=== PATIENT | female | born 1985 | race African-American/Black ===

== ENCOUNTER 2020-06-03 12:46 | Emergency (ER) | payer OTHER, SELFPAY ==
[2020-06-03 12:56] VITALS: BP 127/88; PULSE 80; RESP 16; TEMP 37; O2SAT 100
--- NOTE | 2020-06-03 13:16 | ED.SKABFB ---
HPI - Skin/Abscess/Foreign Bdy General Chief complaint: Skin/Abscess/Foreign Body Stated complaint: Rash Source: patient Mode of arrival: ambulatory Limitations: no limitations History of Present Illness HPI narrative: Patient is a 34-year-old female who presents complaining of eczema flare. She reports a history of eczema, as she has multiple medications in the past. She reports she does not currently have a PCP. She is complaining of pruritus. She reports using multiple [id number] lotions and creams without relief. She denies pain. Related Data Allergies Allergy/AdvReac Type Severity Reaction Status Date / Time peanut Allergy Mild Verified 06/03/20 13:02 Review of Systems Review of Systems: Narrative: CONSTITUTIONAL: Denies fever, chills, or sweats. EYES: Denies visual changes, redness, or discharge. ENT: Denies rhinorrhea, congestion, sore throat, or otalgia. CARDIOVASCULAR: Denies chest pain, palpitations, or edema. RESPIRATORY: Denies cough or dyspnea. GASTROINTESTINAL: Denies abdominal pain, nausea, vomiting, or diarrhea. GENITOURINARY: Denies dysuria or hematuria. SKIN: Reports eczema to neck chest bilateral arms and face MUSCULOSKELETAL: Denies back pain, joint pain, or myalgia. NEUROLOGIC: Denies headache, numbness, dizziness, or weakness. PSYCHIATRIC: Denies anxiety or depression. [facility]LY [facility] Past Medical History Medical History Asthma Eczema Surgical History Surgical History (Updated 06/03/20 @ 13:20 by MARIAN De La Garza) No significant past surgical history Social History Social History (Updated 06/03/20 @ 13:21 by MARIAN De La Garza) Smoking status: Never smoker Alcohol intake: current Alcohol use details: occasional Substance use: never Gender identity (if verbalized by the patient): Female Exam Narrative: Exam Narrative: GENERAL: Well-appearing, well-nourished, and in no acute distress. HEAD: Normocephalic, atraumatic. EYES: No redness or drainage. ENT: Mucous membranes pink and moist. CHEST: No respiratory distress. EXTREMITIES: Normal range of motion. SKIN: Multiple areas of erythema and excoriation to neck, bilateral arms and torso. NEURO: No focal deficits. Alert and oriented x3. Gait steady. PSYCH: Normal affect. No signs of depression or anxiety. Course Vital Signs Vital signs: Vital Signs Temperature 37.0 C 06/03/20 12:56 Pulse Rate 80 06/03/20 12:56 Respiratory Rate 16 06/03/20 12:56 Blood Pressure 127/88 06/03/20 12:56 Pulse Oximetry 100 06/03/20 12:56 Temperature 37.0 C 06/03/20 12:56 Pulse Rate 80 06/03/20 12:56 Respiratory Rate 16 06/03/20 12:56 Blood Pressure 127/88 06/03/20 12:56 Pulse Oximetry 100 06/03/20 12:56 Reviewed MDM - Skin/Abscess/Foreign Bdy MDM Narrative Medical decision making narrative: Patient has multiple areas of eczema. Cream to be ordered. Patient also to be given Atarax for itching. Discussed following up with dermatology. Patient reports she does not have a PCP at this time, 1 to be provided. Patient is stable for discharge to home. Differential Diagnosis Differential diagnosis: Likely urticaria, eczema and contact dermatitis Critical Care Time Critical Care Time Critical Care Time: No Discharge Plan Discharge Clinical Impression: Eczema Patient Disposition: Home, Self-Care Condition: Stable Instructions: Eczema (ED) Additional Instructions: Use cream as directed. You may take Atarax for itching. Continue to keep your skin well moisturized. Follow-up with PCP provided. Prescriptions: New clobetasol 0.05 % cream 1 applic topical BID PRN (Reason: dermatitis) 14 Days Qty: 60 RF: 0 hydroxyzine HCl 25 mg tablet 25 mg PO TID PRN (Reason: itching) Qty: 20 RF: 0 Follow-up/Referrals: PHYSICIAN,MOLD BLOWER [Primary Care Provider] - Time of Disposition: 13:29
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
== END 2020-06-03 13:31 | disposition home or self-care (01) ==
PROVIDERS: Emergency Provider Nurse Practitioner
DX: L30.9 Dermatitis, unspecified (principal); J45.909 Unspecified asthma, uncomplicated
CPT/HCPCS: 99213; G0463

== ENCOUNTER 2020-09-16 14:41 | Emergency (ER) | payer OTHER, SELFPAY ==
--- NOTE | 2020-09-16 14:59 | ED.SKABFB ---
HPI - Skin/Abscess/Foreign Bdy General Chief complaint: Skin/Abscess/Foreign Body Stated complaint: RASH Time Seen by Provider: 09/16/20 14:58 Source: patient and RN notes reviewed Mode of arrival: ambulatory Limitations: no limitations History of Present Illness HPI narrative: 34 a female presents with concern for eczema flare. Reports history of eczema. Reports for 3 days she has had flared up patches of eczema on her arms, legs, torso. Reports she is out of her clobetasol. She denies any difficulty breathing, wheezing, nausea, vomiting, fever, swollen lips, swollen tongue. complaint: rash Related Data Allergies Allergy/AdvReac Type Severity Reaction Status Date / Time peanut Allergy Mild Verified 06/03/20 13:02 Review of Systems Review of Systems: Narrative: CONSTITUTIONAL: Denies malaise, chills, sweats, or fever. EYES: Denies visual changes, redness, or discharge. ENT: Denies swollen lips, swollen tongue, difficulty swallowing CARDIOVASCULAR: Denies chest pain, palpitations, or edema. RESPIRATORY: Denies cough or dyspnea. GASTROINTESTINAL: Denies nausea, vomiting, diarrhea SKIN: Reports itchy patches on arms, legs, torso All systems reviewed & are unremarkable except as noted in HPI and below PMFSH Past Medical History Medical History Asthma Eczema Surgical History Surgical History (Updated 06/03/20 @ 13:20 by MARIAN De La Garza) No significant past surgical history Social History Social History (Updated 06/03/20 @ 13:21 by MARIAN De La Garza) Smoking status: Never smoker Alcohol intake: current Substance use: never Gender identity (if verbalized by the patient): Female Comments At time of signature, agree with nursing past medical, surgical, social and family history. There is no relevant family history pertinent to the presenting complaint Exam Narrative: Exam Narrative: GENERAL: Well-appearing, well-nourished, and in no acute distress. HEAD: Normocephalic, atraumatic. EYES: PERRLA, conjunctivae clear, and EOMI. ENT: Mucous membranes moist. Oropharynx without edema, erythema or lesions. NECK: Supple. No lymphadenopathy CHEST: Clear to auscultation. No respiratory distress. HEART: Regular rate and rhythm. SKIN: Warm, dry. Patches of scaly dryness and erythema noted to arms and legs NEURO: Alert and oriented x3. PSYCH: Normal mood and affect Course Course Emergency Course: Patient is aware of diagnosis, understands and agrees to treatment plan. Anticipatory guidance given. Patient agrees to follow-up as directed and is aware of reasons to seek care at the emergency department. Portions of this record may have been created with voice recognition software Vital Signs Vital signs: Vital Signs Temperature 96.7 F L 09/16/20 15:01 Pulse Rate 71 09/16/20 15:01 Respiratory Rate 18 09/16/20 15:01 Blood Pressure 124/76 09/16/20 15:01 Pulse Oximetry 100 09/16/20 15:01 Temperature 96.7 F L 09/16/20 15:01 Pulse Rate 71 09/16/20 15:01 Respiratory Rate 18 09/16/20 15:01 Blood Pressure 124/76 09/16/20 15:01 Pulse Oximetry 100 09/16/20 15:01 Reviewed. MDM - Skin/Abscess/Foreign Bdy MDM Narrative Medical decision making narrative: Does not appear at this time to be erythema multiforme, bullous, SJS, TEN; no evidence at this time to suggest RMSF, endocarditis or Lyme disease; patient looks well, nontoxic and is tolerating oral intake; no neurologic signs or symptoms; no headache, photophobia or neck pain; afebrile; appropriate for initial outpatient treatment; discussed the importance of follow-up, patient agrees; question, viral exanthema, contact dermatitis, allergic dermatitis, eczema, urticaria. No soft palate or uvula edema, no tongue, lip edema or other mucosal involvement, no respiratory compromise, no stridor, no wheezing, no wheezing, no history of syncope, no hypotension, no nausea, vomiting, o
[2020-09-16 15:01] VITALS: BP 124/76; PULSE 71; RESP 18; TEMP 35.9; O2SAT 100
== END 2020-09-16 15:09 | disposition home or self-care (01) ==
PROVIDERS: Emergency Provider Nurse Practitioner
DX: L30.9 Dermatitis, unspecified (principal); J45.909 Unspecified asthma, uncomplicated
CPT/HCPCS: 99213; G0463

== ENCOUNTER 2021-01-03 18:38 | Emergency (ER) | payer OTHER, SELFPAY ==
[2021-01-03 18:49] VITALS: BP 122/87; PULSE 75; RESP 16; TEMP 36.1; O2SAT 100
[2021-01-03 18:52] VITALS: BP 122/87; PULSE 75; RESP 16; TEMP 36.1; O2SAT 100
--- NOTE | 2021-01-03 18:56 | ED.SKABFB ---
HPI - Skin/Abscess/Foreign Bdy General Chief complaint: Skin/Abscess/Foreign Body Stated complaint: Rash History of Present Illness HPI narrative: This is a 35-year-old female comes in complaining of flareup of her eczema patient states that she takes clobetasol she states she used triamcinolone whenever she had flares but it no longer works for her patient states she is been working out and has been hot out and she thinks that was causing her flare Related Data Allergies Allergy/AdvReac Type Severity Reaction Status Date / Time peanut Allergy Mild Verified 06/03/20 13:02 Review of Systems Constitutional: Comments: CONSTITUTIONAL: Denies fever, chills, or sweats. EYES: Denies visual changes, redness, or discharge. ENT: Denies rhinorrhea, congestion, sore throat, or otalgia. CARDIOVASCULAR:Denies chest pain, palpitations, or edema. RESPIRATORY: Denies cough or dyspnea. GASTROINTESTINAL: Denies abdominal pain, nausea, vomiting, or diarrhea. GENITOURINARY: Denies dysuria or hematuria. SKIN: Positive rash or itching. MUSCULOSKELETAL:Denies back pain, joint pain, or myalgia. NEUROLOGIC: Denies headache, numbness, or weakness. PSYCHIATRIC:Denies anxiety or depression PMFSH Past Medical History Medical History Asthma Eczema Surgical History Surgical History (Updated 06/03/20 @ 13:20 by MARIAN De La Garza) No significant past surgical history Social History Social History (Updated 06/03/20 @ 13:21 by MARIAN De La Garza) Smoking status: Never smoker Alcohol intake: current Substance use: never Gender identity (if verbalized by the patient): Female Comments At time as signature, I have reviewed and agree with nursing past medical, social, surgical and family history. Please see nursing chart for further information. There is no relevant family history pertinent to the presenting complaint. Exam Narrative: Exam Narrative: GENERAL:Well-appearing, well-nourished, and in no acute distress. HEAD:Normocephalic, atraumatic. EYES: PERRLA and EOMI. ENT: Nares clear, no rhinorrhea or epistaxis. Mucous membranes moist. NECK: Supple. CHEST: Clear to auscultation. No respiratory distress. HEART: Regular rate and rhythm. No murmur heard. Normal peripheral pulses. ABDOMEN: Soft, nontender, nondistended, normal active bowel sounds. EXTREMITIES: Normal range of motion. No edema. SKIN: Warm, dry, fine hard rash, itchy all over bilateral arms chest, and some back. NEURO: No focal deficits. Alert and oriented x3. Course Vital Signs Vital signs: Vital Signs Temperature 96.9 F L 01/03/21 18:49 Pulse Rate 75 01/03/21 18:49 Respiratory Rate 16 01/03/21 18:49 Blood Pressure 122/87 01/03/21 18:49 Pulse Oximetry 100 01/03/21 18:49 Temperature 96.9 F L 01/03/21 18:52 Pulse Rate 75 01/03/21 18:52 Respiratory Rate 16 01/03/21 18:52 Blood Pressure 122/87 01/03/21 18:52 Pulse Oximetry 100 01/03/21 18:52 MDM - Skin/Abscess/Foreign Bdy Differential Diagnosis Differential diagnosis: Likely abscess of skin or subcutaneous tissue, viral exanthem, urticaria, eczema, insect bites and contact dermatitis Discharge Plan Discharge Clinical Impression: Eczema Qualifiers: Eczema type: unspecified Qualified Code(s): L30.9 - Dermatitis, unspecified Patient Disposition: Home, Self-Care Condition: Stable Instructions: Antibiotic Form, Eczema (ED) Additional Instructions: Use skin creams/lotion, such as those containing calamine or pramoxine to reduce itchiness Avoid scratching when possible to prevent worsening of the condition and disruption of the skin that could lead to bacterial infection To relieve itching, place a cool washcloth or some ice over the area that itches, rather than scratching Return to the office or seek ER visit if condition is not improving or worsens with fever, swelling, difficulty breathing or swallowing.
== END 2021-01-03 19:02 | disposition home or self-care (01) ==
PROVIDERS: Emergency Provider Nurse Practitioner Family
DX: L30.9 Dermatitis, unspecified (principal); J45.909 Unspecified asthma, uncomplicated
CPT/HCPCS: 99213; G0463

== ENCOUNTER 2021-01-16 14:01 | Emergency (ER) | payer OTHER, SELFPAY ==
--- NOTE | 2021-01-16 14:08 | ED.DENTAL ---
HPI - Dental/Oral General Chief complaint: Dental/Oral Stated complaint: Tooth Pain Time Seen by Provider: 01/16/21 14:08 Source: patient and RN notes reviewed Mode of arrival: ambulatory Limitations: no limitations History of Present Illness HPI Narrative: 35-year-old female presents to the [facility] with complaints pain and swelling to the right lower jaw. Unknown last Dental visit. States that she has made a dental apt in Mar. Decayed teeth noted throughout the mouth. Denies fever, nausea, vomiting. No chest pain or abdominal pain. History of eczema Related Data Allergies Allergy/AdvReac Type Severity Reaction Status Date / Time peanut Allergy Mild Other Verified 01/16/21 14:16 Review of Systems Review of Systems: All systems reviewed & are unremarkable except as noted in HPI and below Constitutional: Constitutional: Reports no additional constitutional complaints, Denies chills and Denies fever(s) Eyes: Eyes: Reports no additional eye complaints ENT: Reports as per HPI and Denies sore throat Comments: Right lower dental pain and swelling Cardiovascular: Cardiovascular: Reports no additional cardiovascular complaints and Denies chest pain Respiratory: Respiratory: Reports no additional respiratory complaints, Denies cough and Denies dyspnea Gastrointestinal: Gastrointestinal: Reports no additional gastrointestinal complaints, Denies abdominal pain, Denies nausea and Denies vomiting Musculoskeletal: Musculoskeletal: Reports no additional musculoskeletal complaints, Denies back pain, Denies arthralgias and Denies joint swelling Integumentary/Breasts: Skin/Breast: Reports system reviewed and no additional complaints, except as docu and Denies rash Neurologic: Reports system reviewed and no additional complaints, except as documented Psychiatric: Psychiatric: Reports no additional psychiatric complaints Allergic/Immunologic: Allergic/Immunologic: Reports no additional allergic/immunologic complaints FORMERLY [facility] Past Medical History Medical History Asthma Eczema Surgical History Surgical History No significant past surgical history Social History Social History Smoking status: Never smoker Alcohol intake: current Substance use: never Gender identity (if verbalized by the patient): Female Comments At the time of my signature, I reviewed and agree with the nursing past medical, surgical, social, and family history. There is no relevant family history pertinent to the patient complaint. Exam Const: General: healthy appearing and alert Nutritional Appearance: well nourished Orientation/consciousness: patient oriented x3 Limitations: no limitations Other: Appears to be in mild pain HENMT: Head: normal to inspection Ears: hearing grossly normal bilaterally, external ears normal, TM's normal bilaterally and EAC's normal General nose exam: Normal external nose present, Normal nares present and Normal nasal mucous membranes and turbinates present Face images: 1. Swelling noted with tenderness. No erythema, no fluctuance Mouth: Yes lip normal Teeth and gingiva: caries, gingiva abnormal edematous, with purulent discharge (Right lower) and diffusely erythematous (Right lower) and poor dentition Teeth image: 1. Severe decay noted with gingiva swelling noted Throat: uvula midline Eyes: Conjunctivae: conjunctivae normal Pupils: Equal, round and reactive pupils present Neck: Neck: normal visual inspection, no lymphadenopathy and no meningeal signs Chest: Chest palpation & inspection: normal inspection of the chest Resp: Effort & Inspection: normal respiratory effort and no use of accessory muscles Auscultation: clear to auscultation bilaterally, no crackles, no rales, no rhonchi and no wheezes Cardio: Rate: regular rate Rhythm: regular rhyt
[2021-01-16 14:09] VITALS: BP 130/81; PULSE 73; RESP 16; TEMP 36.4; O2SAT 100
== END 2021-01-16 14:29 | disposition home or self-care (01) ==
PROVIDERS: Emergency Provider Nurse Practitioner
DX: K04.7 Periapical abscess without sinus (principal); J45.909 Unspecified asthma, uncomplicated
CPT/HCPCS: 99213; G0463

== ENCOUNTER 2021-03-31 17:39 | Emergency (ER) | payer OTHER, SELFPAY ==
[2021-03-31 17:50] VITALS: BP 115/81; PULSE 70; RESP 18; TEMP 36.9; O2SAT 100
--- NOTE | 2021-03-31 18:18 | ED.SKABFB ---
HPI - Skin/Abscess/Foreign Bdy General Chief complaint: Skin/Abscess/Foreign Body Stated complaint: rash Source: patient and RN notes reviewed Mode of arrival: ambulatory History of Present Illness HPI narrative: This is a 35-year-old female that presented today to get a refill on her eczema medication. She has no complaints. The patient denies SOB, CP, palpitation, extremity numbness, lightheadedness, dizziness, constipation, diarrhea, chills, or fever. Related Data Allergies Allergy/AdvReac Type Severity Reaction Status Date / Time peanut Allergy Mild Other Verified 03/31/21 18:02 Review of Systems Review of Systems: A 14 organ system Review of Systems was performed and pertinent positives included in the HPI, otherwise remaining ROS is negative. [facility] Past Medical History Medical History Asthma Eczema Surgical History Surgical History No significant past surgical history Social History Social History Smoking status: Never smoker Alcohol intake: current Alcohol use details: occasional Substance use: never Gender identity (if verbalized by the patient): Female Exam Narrative: GENERAL: This is a well-nourished, well-developed patient, in no apparent distress. HEAD: normocephalic, atraumatic. EYES: PERRL. Sclera clear/white. Vision is grossly intact. EARS: External ears normal, auditory canals clear and without drainage, TMs normal without perforation. Hearing grossly intact. NOSE: External nose normal with no obvious nasal discharge, nares without redness, no rhinorrhea. THROAT: Mucous membranes moist, posterior pharynx clear. NECK: Neck supple, non-tender without lymphadenopathy, masses or thyromegaly. CARDIOVASCULAR: Regular rate and rhythm without murmurs, gallops, or rubs. RESPIRATORY: Clear to auscultation. Breath sounds equal bilaterally. No wheezes, rales, or rhonchi. GASTROINTESTINAL: Abdomen soft, non-tender, nondistended. Bowel sounds are active. No hepato-splenomegaly, or palpable masses. No guarding. SKIN: Generalized body rash NEURO: awake, alert, and oriented to person, place and time. There were no obvious focal neurologic abnormalities. Steady gait EXTREMITIES: Normal range of motion. No edema. No calf tenderness. Negative Homans sign bilaterally. BACK: Nontender without deformity or crepitance. No flank tenderness. Course Course Emergency Course: Patient clobetasol refilled Vital Signs Vital signs: Vital Signs Temperature 98.4 F 03/31/21 17:50 Pulse Rate 70 03/31/21 17:50 Respiratory Rate 18 03/31/21 17:50 Blood Pressure 115/81 03/31/21 17:50 Pulse Oximetry 100 03/31/21 17:50 Temperature 98.4 F 03/31/21 17:50 Pulse Rate 70 03/31/21 17:50 Respiratory Rate 18 03/31/21 17:50 Blood Pressure 115/81 03/31/21 17:50 Pulse Oximetry 100 03/31/21 17:50 MDM - Skin/Abscess/Foreign Bdy Differential Diagnosis Differential diagnosis: Likely abscess of skin or subcutaneous tissue, cellulitis, impetigo, contact dermatitis and other (Eczema) Discharge Plan Discharge Clinical Impression: Eczema Qualifiers: Eczema type: unspecified Qualified Code(s): L30.9 - Dermatitis, unspecified Patient Disposition: Home, Self-Care Condition: Stable Instructions: Antibiotic Form, Eczema (ED) Additional Instructions: Wash the area with soap and cool water only. Avoid scratching when possible to prevent worsening of the condition and disruption of the skin that could lead to bacterial infection To relieve itching, place a cool washcloth or some ice over the area that itches, rather than scratching Follow up with primary care provider or seek ER if you have trouble breathing, become hoarse, or start wheezing, develops belly cramps, vomiting or feel dizzy. Prescriptions: New clobetasol
== END 2021-03-31 18:35 | disposition home or self-care (01) ==
PROVIDERS: Emergency Provider Nurse Practitioner
DX: L30.9 Dermatitis, unspecified (principal)
CPT/HCPCS: 99213; G0463